=== PATIENT | male | born 1935 | race Caucasian/White ===

== ENCOUNTER → 2017-07-21 | Outpatient (CLI) | payer MEDICARE ==
--- NOTE | 2017-07-21 16:37 | Diagnostic Imaging Report ---
PROCEDURE: CT head without contrast. TECHNIQUE: Multiple contiguous axial images were obtained through the brain without the use of intravenous contrast. INDICATION: Altered mental status. COMPARISON: CT head without contrast 03/27/2017. FINDINGS: New 4 mm focus of hyperattenuation in the anterior left parietal lobe. Remainder is stable. Moderate generalized cerebral and cerebellar parenchymal volume loss and leukoaraiosis. Intracranial vascular calcifications. No hydrocephalus or extra-axial fluid collections. Osseous structures are intact. The visualized paranasal sinuses and mastoids are clear. IMPRESSION: New focus of hyperattenuation in the anterior left parietal lobe measuring approximately 4 mm suspicious for a small subarachnoid or intraparenchymal cortical hemorrhage. Findings discussed with Dr. Cristian Perales at 4:30 p.m. on 07/21/2017. Dictated by: Dictated on workstation # [id number]
== END ==
LOC: RAD 15:33
PROVIDERS: ATTEND Family Medicine
DX: G93.89 Other specified disorders of brain (principal); R41.82 Altered mental status, unspecified
CPT/HCPCS: 70450